=== PATIENT | male | born 1990 | race Caucasian/White ===

== ENCOUNTER 2018-06-10 19:00 | Emergency (ER) | payer OTHER ==
[2018-06-10 19:28] VITALS: BP 136/90
--- NOTE | 2018-06-10 19:44 | UC ---
Respiratory Complaint HPI - HPI Summary HPI Summary: Patient is a 27-year-old male with a one-week history of cough. He states that he gets into coughing jags that are so bad that he feels like he might pass out. He has had no fever or chills. He feels dyspneic at times. - History of Current Complaint Chief Complaint: UCGeneralIllness Stated Complaint: COUGH,FEVER,HEADACHE Time Seen by Provider: 06/10/18 19:24 Hx Obtained From: Patient Pain Intensity: 0 - Allergies/Home Medications Allergies/Adverse Reactions: Allergies Allergy/AdvReac Type Severity Reaction Status Date / Time No Known Allergies Allergy Verified 06/10/18 19:28 PMH/Surg Hx/FS Hx/Imm Hx Previously Healthy: Yes Cardiovascular History: Hypertension - not on meds at present Respiratory History: Asthma, Bronchitis, Pneumonia - Surgical History Surgical History: Yes Surgery Procedure, Year, and Place: R ear at age 17 yrs. left foot-had piece of steel removed from it 03/2018 - Family History Known Family History: Positive: Respiratory Disease - Social History Alcohol Use: Occasionally Substance Use Type: None Smoking Status (MU): Former Smoker When Did the Patient Quit Smoking/Using Tobacco: 1/2 pack over past 7 days Review of Systems All Other Systems Reviewed And Are Negative: Yes Constitutional: Positive: Negative Skin: Positive: Negative Eyes: Positive: Negative ENT: Positive: Negative Respiratory: Positive: Shortness Of Breath - only during paroxysm of cough, Cough Cardiovascular: Positive: Negative Gastrointestinal: Positive: Negative Genitourinary: Positive: Negative Motor: Positive: Negative Neurovascular: Positive: Negative Musculoskeletal: Positive: Negative Neurological: Positive: Negative Psychological: Positive: Negative Physical Exam Triage Information Reviewed: Yes Appearance: Well-Appearing, No Pain Distress, Well-Nourished Vital Signs: Initial Vital Signs Temp 98 F 06/10/18 19:25 Pulse 105 06/10/18 19:25 Resp 16 06/10/18 19:25 BP 136/90 06/10/18 19:25 Pulse Ox 99 06/10/18 19:25 Vital Signs Reviewed: Yes Eyes: Positive: Conjunctiva Clear ENT: Positive: Hearing grossly normal, TMs normal. Negative: Pharyngeal erythema, Nasal congestion, Nasal drainage, Tonsillar swelling, Tonsillar exudate, Trismus, Muffled voice, Hoarse voice, Dental tenderness Neck: Positive: Nontender, No Lymphadenopathy Respiratory: Positive: Lungs clear, Normal breath sounds, No respiratory distress, No accessory muscle use Cardiovascular: Positive: RRR, No Murmur, Tachycardia Musculoskeletal: Positive: ROM Intact, No Edema Neurological: Positive: Alert Psychological Exam: Normal Skin Exam: Normal UC Diagnostic Evaluation - Laboratory O2 Sat by Pulse Oximetry: 99 - normal/not hypoxic - Radiology Radiology Interpretation Completed By: ED Physician Summary of Radiographic Findings: NAD Respiratory Course/Dx - Differential Dx/Diagnosis Provider Diagnosis: Upper respiratory infection with cough and congestion Discharge - Sign-Out/Discharge Documenting (check all that apply): Patient Departure All imaging exams completed and their final reports reviewed: No - Discharge Plan Condition: Stable Disposition: HOME Patient Education Materials: Acute Cough (ED) Forms: *Work Release Referrals: Alfie Segura PA [Primary Care Provider] - 3 Days (if not better ) Additional Instructions: recheck for new or worsening symptoms - Billing Disposition and Condition Condition: STABLE Disposition: Home
[2018-06-10] MEDS ORDERED: Benzonatate CAP* 100 MG PO ONE (19:50)
--- NOTE | 2018-06-11 14:17 | UC ---
- Progress Note Progress Note: Patient Name: GUILLERMO FLORES Medical Record#: [id number] Ordering Physician: Raffaele Patel MD Acct.#: [id number] : 1990 Age: 27 Sex: M Location: [facility] Exam Date: 06/10/181933 ADM Status: DEP ER Order Information: CHEST PA & LAT 2 VWS Accession Number: [id number] CPT: 09039 HISTORY: cough/shortness of breath COMPARISONS: September 22, 2015 VIEWS: 4: Frontal dual-energy and lateral views of the chest. FINDINGS: CARDIOMEDIASTINAL SILHOUETTE: The cardiomediastinal silhouette is normal. RICARDO: The ricardo are normal. PLEURA: The costophrenic angles are sharp. No pleural abnormalities are noted. LUNG PARENCHYMA: The lungs are clear. ABDOMEN: The upper abdomen is clear. There is no subphrenic gas. BONES AND SOFT TISSUES: No bone or soft tissue abnormalities are noted. OTHER: None. IMPRESSION: NO ACTIVE CARDIOPULMONARY DISEASE. R0 Preliminary Imaging Read R0 <Electronically signed by Nickolas Meza MD in OV> 06/11/18736 Dictated By: Nickolas Meza MD Dictated Date/Time: 06/11/18736 Transcribed Date/Time: 06/11/18735 Copy to: CC:Alfie GRIFFIN; Raffaele Patel MD Imaging - [facility] - [facility] [address] [address] ph ([phone]) ph ([phone]) ph ([phone]) This report is only to be considered final once signed by the Provider(s) as displayed in the "<Electronically Signed by >" field (s). Absence of a signature indicates the report is in a draft status and still needs to be finalized. In the event this document was created by someone other than the signing Provider, the individual initiating the document will be listed in the "Entered by:" or "Dictated by:" jensen. 1 of 1 Course/Dx - Diagnoses Provider Diagnoses: Upper respiratory infection with cough and congestion Discharge - Sign-Out/Discharge Documenting (check all that apply): Patient Departure All imaging exams completed and their final reports reviewed: Yes - Discharge Plan Condition: Stable Disposition: HOME Prescriptions: Benzonatate CAP* [Tessalon CAP*] 100 - 200 mg PO TID PRN #[id number] cap PRN Reason: Cough Patient Education Materials: Acute Cough (ED) Forms: *Work Release Referrals: Alfie Segura PA [Primary Care Provider] - 3 Days (if not better ) Additional Instructions: recheck for new or worsening symptoms - Billing Disposition and Condition Condition: STABLE Disposition: Home
== END 2018-06-10 20:01 | disposition home or self-care (01) ==
LOC: UCCORT 19:00
DX: J06.9 Acute upper respiratory infection, unspecified (principal); R05 Cough; R09.81 Nasal congestion; Z87.891 Personal history of nicotine dependence
CPT/HCPCS: 71046; 99212; A9270-GY; G0463

== ENCOUNTER 2018-07-25 18:43 | Emergency (ER) | payer OTHER ==
--- NOTE | 2018-07-25 20:10 | UC ---
UC General HPI - HPI Summary HPI Summary: 27-year-old male comes in with a chief complaint of dry mouth feeling very thirsty and urinating a lot. About 2-1/2 weeks ago patient stop drinking alcohol. He reports drinking 18-30 beers a day prior to stopping. He also was drinking around 4 L of sore the eye day and now he is drinking about 12 ounces of soda day. He's also attempting to stop smoking. He did have body aches and felt quite ill for some time he no longer has any body aches but he still having a dry mouth and urinating a lot. No abdominal pain no chest pain does not feel like she's got a pass out no dizziness. No weakness or numbness. - History of Current Complaint Stated Complaint: VOMITING DRY MOUTH Time Seen by Provider: 07/25/18 20:07 - Allergy/Home Medications Allergies/Adverse Reactions: Allergies Allergy/AdvReac Type Severity Reaction Status Date / Time No Known Allergies Allergy Verified 07/25/18 20:06 Home Medications: Home Medications NK [No Home Medications Reported] 07/25/18 [History Confirmed 07/25/18] PMH/Surg Hx/FS Hx/Imm Hx Previously Healthy: Yes - Surgical History Surgical History: Yes Surgery Procedure, Year, and Place: R ear at age 17 yrs. left foot-had piece of steel removed from it 03/2018 - Family History Known Family History: Positive: Respiratory Disease - Social History Alcohol Use: Occasionally Substance Use Type: None Smoking Status (MU): Former Smoker When Did the Patient Quit Smoking/Using Tobacco: 1/2 pack over past 7 days Review of Systems All Other Systems Reviewed And Are Negative: Yes Constitutional: Positive: Negative Skin: Positive: Negative Eyes: Positive: Negative ENT: Positive: Other - SEE HPI Respiratory: Positive: Negative Cardiovascular: Positive: Negative Gastrointestinal: Positive: Negative Genitourinary: Positive: Frequency. Negative: Dysuria, Hematuria Motor: Positive: Negative Neurovascular: Positive: Negative Musculoskeletal: Positive: Negative Neurological: Positive: Negative Psychological: Positive: Negative Is Patient Immunocompromised?: No Physical Exam Triage Information Reviewed: Yes Appearance: Well-Appearing, No Pain Distress, Well-Nourished Vital Signs Reviewed: Yes Eye Exam: Normal Eyes: Positive: Conjunctiva Clear ENT: Positive: Pharynx normal, TMs normal Neck exam: Normal Neck: Positive: Supple Respiratory: Positive: Lungs clear, Normal breath sounds, No respiratory distress Cardiovascular: Positive: RRR Abdomen Description: Positive: Nontender, Soft Musculoskeletal Exam: Normal Musculoskeletal: Positive: Strength Intact, ROM Intact, No Edema, Other: - NO CALF TENDERNESS Neurological Exam: Normal Neurological: Positive: Alert, Muscle Tone Normal Psychological Exam: Normal Psychological: Positive: Age Appropriate Behavior Skin Exam: Normal Course/Dx - Course Course Of Treatment: Patient's fingerstick blood sugar was 101. His urine did not have any glucose or protein and specific gravity is 1.01. Vital signs are stable. He has no abdominal pain no chest pain no headache no weakness or numbness. At this time we'll check a CBC CMP and TSH. Patient has a follow-up his primary care doctor if not completely improved. If he is still having the symptoms even if his labs are normal he needs further evaluation and care. I let the patient of a gets worse to go to the emergency department. - Diagnoses Provider Diagnosis: Dry mouth, Polydipsia, Polyuria Discharge - Sign-Out/Discharge Documenting (check all that apply): Patient Departure All imaging exams completed and their final reports reviewed: No Studies - Discharge Plan Condition: Stable Disposition: HOME Patient Education Materials: Dry Mouth (ED) Referrals: Alfie Segura PA [Primary Care Provider] - Additional Instructions: FOLLOW UP WITH YOUR DOCTOR IF NOT COMPLETELY IMPROVED. GET RECHECKED FOR ANY WORSENING OF YOUR CONDITION OR QUESTIONS OR CONCERNS. - Billing Disposition and Condition Condition: STABLE Disposition: Home
[2018-07-25 20:19] VITALS: BP 143/94
[2018-07-26 11:41] LABS: Albumin 4.7 g/dL (3.2-5.2); Calcium 9.4 mg/dL (8.6-10.3); Potassium 3.8 mmol/L (3.5-5.0); Total Bilirubin 0.5 mg/dL (0.2-1.0)
[2018-07-26 11:43] LABS: ABS Basophils 0.1 10^3/ul (0-0.2); ABS Eosinophils 0.1 10^3/ul (0-0.6); ABS Monocytes 0.7 10^3/ul (0-0.8); ABS Neutrophils 4.8 10^3/ul (1.5-7.7); ABS Nucleated RBC 0 10^3/ul; Eosinophil % 0.6 %; Hematocrit 52 % (42-52); Hemoglobin 17.9 g/dl (14.0-18.0); Lymphocyte % 34.8 %; Mean Corpuscular HGB Conc 34 g/dl (31-36); Mean Corpuscular Hemoglobin 31 pg (27-31); Mean Corpuscular Volume 90 fL (80-94); Nucleated Red Blood Cells % 0.1; Platelet Count 172 10^3/ul (150-450); Red Blood Count 5.76 10^6/ul (4.00-5.40); Red Cell Distribution Width 15 % (10.5-15); White Blood Count 8.6 10^3/ul (3.5-10.8)
[2018-07-26 11:47] LABS: Albumin/Globulin Ratio 1.7 (1-3); BUN/Creatinine Ratio 8.1 (8-20); EGFR African American 109.7 (>60); EGFR Non-African American 90.7 (>60); Globulin 2.8 g/dL (2-4); Total Protein 7.5 g/dL (6.4-8.9)
[2018-07-26 12:02] LABS: TSH (Thyroid Stimulating Horm) 18.23 mcIU/mL (0.34-5.60)
--- NOTE | 2018-07-27 07:24 | UC ---
- Progress Note Progress Note: elevated TSH please have the pt. follow up with his pcp nathan Course/Dx - Diagnoses Provider Diagnoses: Dry mouth, Polydipsia, Polyuria Discharge - Sign-Out/Discharge Documenting (check all that apply): Patient Departure All imaging exams completed and their final reports reviewed: No Studies - Discharge Plan Condition: Stable Disposition: HOME Patient Education Materials: Dry Mouth (ED) Referrals: Alfie Segura PA [Primary Care Provider] - Additional Instructions: FOLLOW UP WITH YOUR DOCTOR IF NOT COMPLETELY IMPROVED. GET RECHECKED FOR ANY WORSENING OF YOUR CONDITION OR QUESTIONS OR CONCERNS. - Billing Disposition and Condition Condition: STABLE Disposition: Home
== END 2018-07-25 21:26 | disposition home or self-care (01) ==
LOC: UCCORT 18:43
DX: R63.1 Polydipsia (principal); R35.8 Other polyuria; R94.6 Abnormal results of thyroid function studies; Z87.891 Personal history of nicotine dependence
CPT/HCPCS: 36415; 80053; 81003; 84443; 85025; 99211; G0463